=== PATIENT | female | born 1965 | race Caucasian/White ===

== ENCOUNTER 2019-12-31 11:44 | Day surgery (SDC) | payer OTHER ==
[2019-12-26 11:31] VITALS: BMI 25.1
[2019-12-31] MEDS ORDERED: PROPOFOL 20 ML ONE ×2 (12:46)
[2019-12-31 13:26] VITALS: TEMP 97.9
[2019-12-31 13:37] VITALS: BP 96/54; PULSE 68
--- NOTE | 2020-01-05 16:39 | PATH ---
Surgical Pathology Report Patient Name: CLAUDIA ROBERTSON Med. Rec. #: [id number] /Age/Gender: 1965 (Age: 54) / F Account: [id number] Location: [facility] Taken: 12/31/2019 Received: 12/31/2019 Reported: 01/05/2020 Physicians: Ruchi Reich M.D. Specimen(s) Received LIPOMA DISTAL TRANSVERSE COLON X2 Clinical History Screening. Postoperative diagnosis: Hemorrhoids, lipoma Final Diagnosis DISTAL TRANSVERSE COLON, LIPOMA, BIOPSY: SESSILE SERRATED POLYP(S). Comment: No lipomatous component is identified. Electronically Signed Anum Conley M.D. Gross Description Received in formalin, labeled "lipoma, distal transverse colon" are 2 romero, irregular portions of soft tissue, each measuring 0.2 cm. in greatest dimension. The specimens are submitted in toto in one cassette. AE/01/01/2020 ebram/01/01/2020
== END 2019-12-31 13:50 | disposition home or self-care (01) ==
LOC: FASU-ENDO 11:44
PROVIDERS: ATTEND Internal Medicine Gastroenterology
PROC: 0DBL8ZX Excision of Transverse Colon, Via Natural or Artificial Opening Endoscopic, Diagnostic (ICD-10-PCS; principal; 2019-12-31 12:57)
DX: Z12.11 Encounter for screening for malignant neoplasm of colon (principal); K64.1 Second degree hemorrhoids; D17.79 Benign lipomatous neoplasm of other sites
CPT/HCPCS: 88305-TC

== ENCOUNTER 2020-02-14 18:42 | Emergency (ER) | payer OTHER ==
[2020-02-14 18:59] VITALS: BP 115/68; PULSE 67; TEMP 98.2; BMI 25.4
--- OUTSIDE RECORDS SUMMARY | 2020-02-14 19:32 | XMS ---
:1965 Author Organization [facility] Care Team Providers Name Role Phone Damir, Ruchi Unavailable Unavailable Lufrano, Ruchi Unavailable Unavailable Lufrano, Ruchi Unavailable Unavailable Lufrano, Ruchi Unavailable Unavailable Lufrano, Ruchi Unavailable Unavailable Lufrano, Ruchi Unavailable Unavailable Lufrano, Ruchi Unavailable Unavailable Re-disclosure Warning The records that you are about to access may contain information from federally- assisted alcohol or drug abuse programs. If such information is present, then the following federally mandated warning applies: This information has been disclosed to you from records protected by federal confidentiality rules (42 CFR part 2). The federal rules prohibit you from making any further disclosure of this information unless further disclosure is expressly permitted by the written consent of the person to whom it pertains or as otherwise permitted by 42 CFR part 2. A general authorization for the release of medical or other information is NOT sufficient for this purpose. The Federal rules restrict any use of the information to criminally investigate or prosecute any alcohol or drug abuse patient.The records that you are about to access may contain highly sensitive health information, the redisclosure of which is protected by Article 27-F of the [place] State Public Health law. If you continue you may haveaccess to information: Regarding HIV / AIDS; Provided by facilities licensed or operated by the [facility] Office of Mental Health; or Provided by the [facility] Office for People With Developmental Disabilities. If such information is present, then the following [facility] mandated warning applies: This information has been disclosed to you from confidential records which are protected by state law. State law prohibits you from making any further disclosure of this information without the specific written consent of the person to whom it pertains, or as otherwise permitted by law. Any unauthorized further disclosure in violation of state law may result in a fine or correction sentence or both. A general authorization for the release of medical or other information is NOT sufficient authorization for further disclosure. Allergies and Adverse Reactions Type Description Substance Reaction Status Data Source(s ) Drug allergy aspirin Aspirin Active [facility] ([facility], ) Encounters Encounter Providers Location Date Indications Data Source(s ) Attender: Ruchi 02/09/2020 [facility] (S [facility] [place] 12:00:00 AM ED Medical, ) Office Attender: Ruchi Reich 02/09/2020 12:00:00 AM EDT [facility] ([facility]) Office Attender: Ruchi Reich 02/09/2020 12:00:00 AM EDT [facility] ([facility]) Office Attender: Ruchi Reich 11/24/2019 12:00:00 AM EDT [facility] ([facility]) Office Attender: Ruchi Reich 11/24/2019 12:00:00 AM EDT [facility] ([facility]) Office Medications Medication Brand Start Product Dose Route Administrative Pharmacy [facility] Indications Reaction Description Data Name Date Form Instructions Instructions Source(s) SUPREP 07/ LIQUID 1 complet SUPREP SAMINA L [facility] (St BOWEL PREP 2020 ed PREP KIT [facility] KIT:[id number] 12:00: Medica l, 00 AM PC) EDT Ibuprofen IBUPRO 11/23/ TABLET 30 complet IBUPRO FEN [facility] (St 800 MG Oral FEN:2019 ed [facility] Tablet 7807 12:00: Medical, IBUPROFEN:1 00 AM PC) 92162 EDT Ibuprofen IBUPRO 07/20/ TABLET 30 complet IBUPRO FEN [facility] (St 800 MG Oral FEN:2019 ed [facility] Tablet 7807 12:00: Medical, IBUPROFEN:1 00 AM PC) 03514 EDT SUPREP 20/ LIQUID 1 complet SUPREP SAMINA L [facility] (St BOWEL PREP 2020 ed PREP KIT [facility] KIT:[id number] 12:00: Medica l, 00 AM PC) EDT Insurance Providers Payer name Policy type Policy ID Covered Covered republican's Policy P ruth ann / Coverage republican ID relationship to [facility] contreras MATHEW [id number] SP [id number] HEALTH NON CAP MEDICAID OF [id number] [place] [id number] [place] [id number] SP [id number] 500 HEALTH NON CAP MEDICAID [id number] MATHEW [id number] SP [id number] 500 EXCHANGE MATHEW CARE [id number] CASSANDRA Problems, Conditions, and Diagnoses Code Display Name Description Problem Type Effective Data Sour ce(s) Dates Z86.010 Personal history of PERSONAL HISTORY Problem 02/09/2020 [facility] ([address] colonic polyps OF COLONIC POLYPS 12:00:00 AM [facility], ) K80.20 Calculus of CALCULUS OF Problem 02/09/2020 [facility] (St gallbladder without GALLBLADDER 12:00:00 AM [facility] cholecystitis WITHOUT [facility], ) without obstruction CHOLECYSTITIS WITHOUT OBSTRUCTION K30 Functional FUNCTIONAL Problem 11/24/2019 [facility] (St dyspepsia DYSPEPSIA 12:00:00 AM [facility], ) Z12.11 Encounter for ENCOUNTER FOR Problem 11/24/2019 MED[facility] ( St screening for SCREENING FOR 12:00:00 AM [facility] malignant neoplasm MALIGNANT NEOPLASM [facility], ) of colon OF COLON K30 Functional FUNCTIONAL Problem 11/24/2019 [facility] (St dyspepsia DYSPEPSIA 12:00:00 AM [facility], ) Z12.11 Encounter for ENCOUNTER FOR Problem 11/24/2019 [facility] ( St screening for SCREENING FOR 12:00:00 AM [facility] malignant neoplasm MALIGNANT NEOPLASM [facility], ) of colon OF COLON B35.1 Tinea unguium TINEA UNGUIUM Problem 10/20/2019 [facility] ( St 12:00:00 AM [facility], ) B35.1 Tinea unguium TINEA UNGUIUM Problem 10/20/2019 [facility] ( St 12:00:00 AM [facility], ) M79.671 Pain in right foot PAIN IN RIGHT FOOT Problem 0 MED[facility] (St 12:00:00 AM [facility], ) M20.11 Hallux valgus HALLUX VALGUS Problem 10/13/2019 [facility] ( St (acquired), right (ACQUIRED), RIGHT 12:00:00 AM [facility] FOOT [facility], ) M79.671 Pain in right foot PAIN IN RIGHT FOOT Problem 0 [facility] (St 12:00:00 AM [facility], ) M20.11 Hallux valgus HALLUX VALGUS Problem 10/13/2019 MED[facility] ( St (acquired), right (ACQUIRED), RIGHT 12:00:00 AM [facility] FOOT T [facility], ) Surgeries/Procedures Procedure Description Date Indications Data Source(s) Documentation of current 02/09/2020 [facility] ([facility] (procedure) 12:00:00 AM EDT [facility], ) BRIEF COMMUNICATION 02/09/2020 [facility] ( [facility] TECHNOLOGY-BASED SERVICE 12:00:00 AM [facility], ) Documentation of current 11/24/2019 [facility] ([facility] (procedure) 12:00:00 AM EDT karen, ) Documentation of current 11/24/2019 [facility] ([facility] (procedure) 12:00:00 AM EDT [facility], ) Documentation of current 11/24/2019 [facility] ([facility] (procedure) 12:00:00 AM EDT [facility], ) Documentation of current 11/24/2019 [facility] ([facility] (procedure) 12:00:00 AM EDT karen, ) Documentation of current 11/24/2019 [facility] ([facility] (procedure) 12:00:00 AM EDT karen, ) OFFICE OUTPATIENT NEW 30 11/24/2019 [facility] ([facility] MINUTES 12:00:00 AM [facility], ) Documentation of current 11/24/2019 [facility] ([facility] (procedure) 12:00:00 AM EDT [facility], ) OFFICE CONSULTATION 11/24/2019 [facility] ( [facility]PATIENT VISIT 10/20/2019 [facility] OUTPATIENT VISIT 10/20/2019 [facility] EN ([facility] 10 MINUTES 12:00:00 AM EDT Medical, PC) OFFICE OUTPATIENT NEW 20 10/13/2019 [facility] ([facility] MINUTES 12:00:00 AM EDT Medical, PC) OFFICE OUTPATIENT NEW 10/13/2019 [facility] ([facility] MINUTES 12:00:00 AM EDT Medical, ) Results ID Date Data Source [id number] 12/26/2019 10:28:00 AM EDT [facility] Name Value Range Interpretation Description Data Sup porting Code Source(s) Document(s ) SARS [facility] coronavirus 2 RNA This lab was ordered by JOSE BIGGS and reported by [facility]. ID Date Data Source [id number] 10/26/2019 04:15:00 PM EDT [facility] Name Value Range Interpretation Code Description Data Kaylyn rce(s) Supporting Document(s ) COV2 [facility] This lab was ordered by ONE[facility] greenfield nd reported by [facility]. Procedure Social History Code Duration Value Status Description Data Source(s ) Smoking 02/09/2020 Non smoker Non completed Non smoker Non [facility] ([facility] 12:00:00 AM EDT Drinker No drug Drinker No drug use Medical, ) use Smoking 02/09/2020 Unknown if ever completed Unknown if ever [facility] ([facility] 12:00:00 AM EDT smoked smoked Medical, PC) Smoking 11/24/2019 Non smoker Non completed Non smoker Non [facility] ([facility] 12:00:00 AM EDT Drinker No drug Drinker No drug use Medical, ) use Smoking 11/24/2019 Unknown if ever completed Unknown if ever [facility] ([facility] 12:00:00 AM EDT smoked smoked Medical, ) Vital Signs ID Date Data Source UNK Name Value Range Interpretation Code Description Data Source(s) Heart rate 64 /min 64 /min [facility] ([facility] , ) Inhaled oxygen 94 % 94 % [facility] (St [facility]'s Med[facility], ) Body mass index 25.5 kg/m2 25.5 kg/m2 [facility] (S t (BMI) [Ratio] [facility], ) Diastolic blood 70 mm[Hg] 70 mm[Hg] [facility] ([facility] [place] [facility] Systolic blood 112 mm[Hg] 112 mm[Hg] [facility] ([facility]) Body weight 144 lb 144 lb [facility] ([facility]) Body height 63 in 63 in [facility] ([facility]) Heart rate 64 /min 64 /min [facility] ([facility]) Inhaled oxygen 94 % 94 % [facility] Body mass index 25.5 kg/m2 25.5 kg/m2 [facility] (S t (BMI) [Ratio] [facility]) Diastolic blood 70 mm[Hg] 70 mm[Hg] [facility] ([facility] Systolic blood 112 mm[Hg] 112 mm[Hg] [facility] ([facility]) Body weight 144 lb 144 lb [facility] ([facility]) Body height 63 in 63 in [facility] ([facility])
--- NOTE | 2020-02-14 19:46 | PDOC ---
History of Present Illness - General Chief Complaint: Pain Stated Complaint: NUMBNESS ON LEFT SIDE Time Seen by Provider: 02/14/20 19:46 - History of Present Illness Initial Comments: 02/14/20 20:08 54yo F w/ no PMHx presents with 1 episode of transient periorbital numbness/burning along with tingling in her left hand. She was driving and on the phone with her sister who is still in [place]. "It's like a warzone there, and lots of people are dying." She endorses increased stressors in her life, mostly involving her family. She endorses 90% resolution of her symptoms, with her hand feeling normal again and a milder tingling (than before) of her cheek (in V2 distribution). Denies similar episodes. Denies facial paralysis. Denies h/o CVA, CA, dysrrhyhmia, recent illness, or rash. Reports a family hx of CVA and CA Past History - Medical History Allergies/Adverse Reactions: Allergies Allergy/AdvReac Type Severity Reaction Status Date / Time aspirin Allergy Severe Swelling Verified 02/14/20 18:47 Home Medications: Ambulatory Orders Ibuprofen [Motrin Ib] 200 mg PO DAILY 12/26/19 Multivitamins [Tab-A-Vit -] 1 tab PO DAILY 12/26/19 Anemia: No Asthma: No Cancer: No Cardiac Disorders: No CVA: No COPD: No CHF: No Dementia: No Diabetes: No GI Disorders: No Disorders: No HTN: No Hypercholesterolemia: No Liver Disease: No Seizures: No Thyroid Disease: No - Reproductive History Is Patient Now?: No - Psycho-Social/Smoking History Smoking History: Never smoked Have you smoked in the past 12 months: No - Substance Abuse Hx (Audit-C & DAST Scrn) How often the patient has a drink containing alcohol: Never Score: In Men: 4 or > Positive; In Women: 3 or > Positive: 0 Screen Result (Pos requires Nsg. Audit-10AR): Negative In the last yr the pt used illegal drug/Rx for NonMed reason: No Score: Yes response is considered Positive: 0 Screen Result (Positive result requires Nsg. DAST-10): Negative Review of Systems - Review of Systems Able to Perform ROS?: Yes Is the patient limited Green[place]ic proficient: No Constitutional: No: Chills, Diaphoresis, Fever, Weakness HEENTM: Yes: Other (paresthesia in her left circumorbital area and L hand. currently no sx in hand but residual in V2 distribution ). No: Blurred Vision, Recent change in vision, Ear Pain, Tinnitus Respiratory: No: Cough, Shortness of Breath Cardiac (ROS): No: Chest Pain, Irregular Heart Rate, Lightheadedness, Palpitations, Syncope ABD/GI: No: Constipated, Nausea, Vomiting : No: Burning, Dysuria, Discharge Musculoskeletal: No: Back Pain, Joint Pain, Muscle Pain Integumentary: No: Bruising, Dryness Neurological: No: Headache, Numbness Hematologic/Lymphatic: No: Anemia, Blood Clots *Physical Exam - Vital Signs Last Vital Signs Temp Pulse Resp BP Pulse Ox 98.2 F 67 18 115/68 98 02/14/20 18:56 02/14/20 18:56 02/14/20 18:56 02/14/20 18:56 02/14/20 18:56 - Physical Exam General Appearance: Yes: Nourished, Appropriately Dressed. No: Apparent Distress HEENT: positive: EOMI, CHAN, Normal Voice. negative: Photophobia Neck: positive: Trachea midline, Supple. negative: Tender Respiratory/Chest: positive: Lungs Clear, Normal Breath Sounds. negative: Respiratory Distress, Accessory Muscle Use, Labored Respiration, Rapid RR Cardiovascular: positive: Regular Rhythm, Regular Rate Gastrointestinal/Abdominal: positive: Normal Bowel Sounds, Soft Musculoskeletal: positive: Normal Inspection. negative: CVA Tenderness Extremity: positive: Normal Capillary Refill, Normal Inspection, Normal Range of Motion Integumentary: positive: Normal Color, Dry, Warm Neurologic: positive: oncology physician II-XII NML intact, Fully Oriented, Alert, Normal Mood/Affect, Normal Response, Motor Strength 5/5, Numbness, Finger to Nose (executed correctly). negative: Abnormal Cranial NS, EOM Palsy, Facial Droop, Sensory Deficit, Confused, Disoriented ED Treatment Course - LABORATORY CBC & Chemistry Diagram: 02/14/20 20:23 02/14/20 20:23 Medical Decision Making - Medical Decision Making 02/14/20 20:30 54yo F w/ no PMHx presents w/ transient paresthesia in L face and L hand w/ current paresthesia in face but not hand. No neuro deficits besides the L V2 paresthesia, no meds, hx of htn. -> unlikely CVA/bleed no rash, paresthesia in face and hand, no pain in affected area -> unlikely Zoster stressful phone call + ipsilateral sx that were transient -> possibly panic attack EKG normal 02/14/20 22:05 Labs normal, CT negative. pt wants to go home. -> DC Discharge - Discharge Information Problems reviewed: Yes Clinical Impression/Diagnosis: Paresthesia Condition: Improved Disposition: HOME - Admission No - Follow up/Referral Referrals: Luis Angel Chirinos MD [Non Staff, Medical] - Kimberly Hinson MD [Staff Physician] - Rik Amor MD [Staff Physician] - - Patient Discharge Instructions Patient Printed Discharge Instructions: DI for Numbness/Tingling Additional Instructions: You were seen in the ED for tingling and burning around your Left eye and in your Left hand. We scanned your head, tested your blood, and looked at your heart's rhythm. From the aspects we tested, everything looks normal. Follow up with one or multiple of the neurologists listed in this packet within 48hours of leaving the ED, and come back with any worsening or severe symptoms. - Post Discharge Activity
[2020-02-14 20:48] LABS: BASO % 0.1 % (0-2.0); EOS % 4.2 % (0-4.5); HEMATOCRIT 38.3 % (32.4-45.2); HEMOGLOBIN 12.7 GM/dL (10.7-15.3); MCH 28.7 pg (25.7-33.7); MCHC 33.1 g/dl (32.0-36.0); MEAN CELL VOLUME 86.4 fl (80-96); MEAN PLT VOLUME 9.2 fl (7.5-11.1); MONO % 6.5 % (3.8-10.2); NEUT % 52.2 % (42.8-82.8); PLATELET COUNT 179 K/MM3 (134-434); RBC 4.43 M/mm3 (3.60-5.2); RDW 13.6 % (11.6-15.6)
--- NOTE | 2020-02-14 21:00 | PDOC ---
Documentation entered by Mukul Flores SCRIBE, acting as scribe for Yakelin Gill MD. Yakelin Gill MD: This documentation has been prepared by the Sandra garcía Aaron, SCRIBE, under my direction and personally reviewed by me in its entirety. I confirm that the documentation accurately reflects all work, treatment, procedures, and medical decision making performed by me. Attending Attestation - Resident Resident Name: Michael Castellanos - ED Attending Attestation I have performed the following: I have examined & evaluated the patient, The case was reviewed & discussed with the resident, I agree w/resident's findings & plan - HPI HPI: 02/14/20 20:31 HPI The patient is a 54 year old female with no significant PMH who presents to the emergency department for left facial numbness/tingling under her eye, resolved. Patient reports burning, numbness, and pain to the left side of her face and both fingers. She reports being in the car on the phone with her sister from [facility] when symptoms began. Patient still endorses some L orbital /cheek numbness and tingling, but the L hand has mostly resolved. Patient denies vision changes, fever, chills, chest pain, SOB, palpitation, dizziness, weakness, N, V, D, abdominal pain, bladder and bowel problems, leg swelling, No sick contacts or travel. No new changes in medications. Allergies: aspirin Past Medical History: none Social history: Lives with family. No tobacco, ETOH or drug use. Surgical history: none Meds: as documented in EMR PMD: Dr. Franchesca Sultana 02/14/20 22:12 - Physicial Exam PE: 02/14/20 20:58 General: Well appearing, awake and alert, NAD. HEENT: NCAT, PERRL, EOMI, clear conjunctiva, anicteric, moist mucous membranes, clear oropharynx, no oral lesions.. CN II to XII grossly intact. Neck: neck supple, FROM Resp: CTAB, normal and even respirations, no respiratory distress CVS: RRR, no murmurs, 2+ peripheral pulses throughout, no peripheral edema Abdomen: soft, NTND, no rebound or guarding. Back: nontender, normal inspection and ROM] MSK: no edema, [place] x4, ROM intact. No clubbing or cyanosis. normal bulk and tone. Extremities: no calf tenderness Neuro: alert, oriented appropriately; no focal neurologic deficits, speech clear, no nystagmus, b/l finger to nose bilaterally equal and symmetric. SILT in all extrem. 5/5 prox and distal strength all extrem. Skin: warm and well perfused, cap refill <2 sec, normal color 02/14/20 22:13 - Medical Decision Making 02/14/20 21:45 Vital Signs Temp Pulse Resp BP Pulse Ox 98.2 F 67 18 115/68 98 02/14/20 18:56 02/14/20 18:56 02/14/20 18:56 02/14/20 18:56 02/14/20 18:56 Vital signs within normal limits Neuro intact, no focal neurologic deficit, ambulatory. Has subjective feelings of tingling that is nonfocal, V2 distribution of her left face as well as occasionally in her fingers bilaterally. She has no neck pain. No fevers or chills, no neck pain. Differential diagnosis includes CVA, TIA, anemia, electrolyte/metabolic derangements, carpal tunnel, trigeminal neuralgia, neuropathy, radiculopathy CT head is negative for acute intracranial pathology, old nasal bone fracture Laboratory results are within normal limits, normal electrolytes including calcium, magnesium. ECG is normal sinus rhythm Pt to be discharged in stable condition. Patient and family made aware of clinical impression, treatment recommendations and disposition plan, return precautions discussed (including but not limited to new or persistent/worsening symptoms, pain, fevers, or signs of infection, chest pain, respiratory distress, inability to tolerate oral intake, dehydration, syncope, or neurologic changes). Follow up with PMD and/or specialist as recommended, follow up information provided, take medications as instructed for duration of time. continue with supportive care, avoid triggers and precipitants. All questions answered to patient's satisfaction and expressed understanding and comfort with this. At the time of discharge, the patient is alert, clinically improved, tolerating po and verbalizes understanding of instructions, satisfied with the care received and felt comfortable with the plan. Patient does not suffer from an acute life- threatening medical condition at this time and is safe for outpatient follow- up. Heart Score/ECG Review #1 ECG reviewed & interpreted by me at: 20:35 General ECG Interpretation: Sinus Rhythm, Normal Rate, Normal Intervals 02/14/20 21:00 EKG normal sinus rhythm 62 bpm, no interval abnormalities, narrow QRS, ST and T wave segments and morphology normal. Nonspecific T wave abnormalities Discharge - Discharge Information Problems reviewed: Yes Clinical Impression/Diagnosis: Paresthesia Condition: Improved Disposition: HOME - Admission No - Follow up/Referral Referrals: Luis Angel Chirinos MD [Non Staff, Medical] - Rik Amor MD [Staff Physician] - Kimberly Hinson MD [Staff Physician] - - Patient Discharge Instructions Patient Printed Discharge Instructions: DI for Numbness/Tingling Additional Instructions: You were seen in the ED for tingling and burning around your Left eye and in your Left hand. We scanned your head, tested your blood, and looked at your heart's rhythm. From the aspects we tested, everything looks normal. Follow up with one or multiple of the neurologists listed in this packet within 48hours of leaving the ED, and come back with any worsening or severe symptoms. - Post Discharge Activity
[2020-02-14 21:33] LABS: ALBUMIN 3.6 g/dl (3.4-5.0); BILIRUBIN,TOTAL 0.4 mg/dL (0.2-1); CREATININE 0.7 mg/dL (0.55-1.3); MAGNESIUM 2.1 mg/dL (1.8-2.4); POTASSIUM 3.8 mmol/L (3.5-5.1); TOT PROT 6.1 g/dl (6.4-8.2)
--- NOTE | 2020-02-15 21:48 | EKG ---
Test Reason : Blood Pressure : / mmHG Vent. Rate : 063 BPM Atrial Rate : 063 BPM P-R Int : 162 ms QRS Dur : 082 ms QT Int : 424 ms P-R-T Axes : 067 083 077 degrees QTc Int : 433 ms NORMAL SINUS RHYTHM NORMAL ECG NO PREVIOUS ECGS AVAILABLE Confirmed by Alicja Tran ([id number]) on 02/15/2020 9:47:55 PM Referred By: Confirmed By:Alicja Tran
== END 2020-02-14 22:24 | disposition home or self-care (01) ==
LOC: JER 18:42
DX: R20.2 Paresthesia of skin (principal)
CPT/HCPCS: 36415; 70450-TC; 80053; 83735; 85025; 93005; 93010; 99285-25

== ENCOUNTER 2022-05-24 11:14 | Day surgery (SDC) | payer OTHER ==
[2022-05-23 14:00] VITALS: BMI 26.5
[2022-05-24 12:56] VITALS: RESP 18; TEMP 98
[2022-05-24 12:58] VITALS: BP 120/71; PULSE 75
== END 2022-05-24 13:04 | disposition home or self-care (01) ==
LOC: FASU-ENDO 11:14
PROVIDERS: ATTEND Internal Medicine Gastroenterology
PROC: 0DBL8ZX Excision of Transverse Colon, Via Natural or Artificial Opening Endoscopic, Diagnostic (ICD-10-PCS; 2022-05-24)
PROC: 0DBP8ZX Excision of Rectum, Via Natural or Artificial Opening Endoscopic, Diagnostic (ICD-10-PCS; 2022-05-24)
PROC: 0DBH8ZX Excision of Cecum, Via Natural or Artificial Opening Endoscopic, Diagnostic (ICD-10-PCS; principal; 2022-05-24 12:10)
DX: Z12.11 Encounter for screening for malignant neoplasm of colon (principal); D12.3 Benign neoplasm of transverse colon; D12.8 Benign neoplasm of rectum; K63.5 Polyp of colon; K57.30 Diverticulosis of large intestine without perforation or abscess without bleeding; K64.1 Second degree hemorrhoids; K64.8 Other hemorrhoids; Z86.010 Personal history of colon polyps
CPT/HCPCS: 88305-TC